=== PATIENT | female | born 1950 | race Caucasian/White ===

== ENCOUNTER 2016-08-28 22:04 | Emergency (ER) | payer MEDICARE, MEDICAID ==
[2016-08-28 22:25] VITALS: PULSE 88; RESP 18; TEMP 97
[2016-08-28] MEDS ORDERED: TRAMADOL HYDROCHLORIDE 50 MG TAB PO ONE (22:51)
[2016-08-28] MEDS ORDERED: TRAMADOL HYDROCHLORIDE 50 MG TAB ONE (22:53)
[2016-08-28 23:04] VITALS: BP 127/67; O2SAT 95
== END 2016-08-28 23:00 | disposition home or self-care (01) | DRG 563 ==
LOC: ED 22:04
DX: S92.355A Nondisplaced fracture of fifth metatarsal bone, left foot, initial encounter for closed fracture (principal); S93.402A Sprain of unspecified ligament of left ankle, initial encounter; X50.9XXA Other and unspecified overexertion or strenuous movements or postures, initial encounter
CPT/HCPCS: 73610; 99283; 99284; L4360

== ENCOUNTER 2016-10-09 08:44 | Day surgery (SDC) | payer MEDICARE, MEDICAID ==
[2016-10-09 11:16] VITALS: BP 129/68; PULSE 74; RESP 18; TEMP 97.6; O2SAT 96
== END 2016-10-09 12:23 | disposition home or self-care (01) | DRG 951 ==
LOC: SURG 08:44
PROVIDERS: ATTEND Surgery
DX: Z12.11 Encounter for screening for malignant neoplasm of colon (principal); E11.9 Type 2 diabetes mellitus without complications; Z79.4 Long term (current) use of insulin; K62.1 Rectal polyp
CPT/HCPCS: 82962; J2704